=== PATIENT | female | born 1970 | race Caucasian/White ===

== ENCOUNTER 2019-07-18 16:07 | Emergency (ER) | payer BC ==
[2019-07-18] MEDS ORDERED: Sodium Chloride 0.9% 10 ML Syringe FLUSH PRN (17:04)
[2019-07-18] MEDS ORDERED: Ondansetron 4 MG/2 ML SDV IVPUSH ONE (17:05)
[2019-07-18] MEDS ORDERED: HYDROmorphone 1 MG/ML Syringe IVPUSH ONE (17:05)
[2019-07-18] MEDS ORDERED: LORazepam 2 MG/ML SDV IVPUSH ONE (17:40)
--- NOTE | 2019-07-18 17:52 | CRLCR ---
Indication: Dislocation. Technique: A single AP view of the right shoulder was obtained. Comparison: None Findings: The humeral head is dislocated anterior and inferior lesion to the glenoid. No fractures identified. Impression: Right shoulder dislocation Dictated by Jacquelyn Granger MD @ Jul 18 2019 5:49PM Signed by Dr. Jacquelyn Granger @ Jul 18 2019 5:50PM
[2019-07-18] MEDS ORDERED: LORazepam 2 MG/ML SDV IM ONE (18:11)
[2019-07-18] MEDS ORDERED: HYDROmorphone 1 MG/ML Syringe IM ONE (18:11)
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
--- NOTE | 2019-07-18 19:39 | CRLCR ---
Indication: Post reduction Technique: Two views of the right shoulder Comparison: 07/18/2019 at 5:35 p.m. Findings/Impression: Interval reduction of the previously seen anterior shoulder dislocation. An apparent small Hill-Sachs deformity. No displaced fracture seen. Dictated by Francis Tomlin MD @ 07/18/2019 7:37:26 PM Dictated by: Francis Tomlin MD @ 07/18/2019 19:37:41 (Electronically Signed)
== END 2019-07-18 19:37 | disposition home or self-care (01) ==
LOC: JP.ED 16:07
DX: S43.014A Anterior dislocation of right humerus, initial encounter (principal); W17.4XXA Fall from dock, initial encounter
CPT/HCPCS: 23650; 73020; 96372; 99283; J1170; J2060